=== PATIENT | female | born 1955 | race Caucasian/White ===

== ENCOUNTER 2016-12-08 11:59 | Day surgery (SDC) | payer BC ==
--- NOTE | 2016-12-08 07:54 | History and Physical Report ---
CHIEF COMPLAINT/HISTORY OF CHIEF COMPLAINT: This patient presents with a history of intractable lumbar radiculitis. Due to the failure of all therapies a spinal cord stimulator trial was conducted on 11/09/16 with 75-90% pain control. Due to the failure of all therapies and the success of the trial, she presents today for implantation of a permanent system. PAST MEDICAL HISTORY: Noncontributory. PAST SURGICAL HISTORY: Tubal ligation and gallbladder surgery. MEDICATIONS ON ADMISSION: List to be provided. ALLERGIES: None given. FAMILY/PSYCHOSOCIAL HISTORY: Social history - Smoking and caffeine consumption. Family history - Diabetes and hypertension. SYSTEMS REVIEW: The patient seems appropriate in no acute distress. The remainder of the systems review is noncontributory. PHYSICAL EXAMINATION: Height is 5'1", weight is 140. Vital signs are not available. HEENT: Within normal limits. LUNGS: Clear. HEART: Regular rate and rhythm. ABDOMEN: Nontender. MUSCULOSKELETAL: Examination of the musculoskeletal system shows diffuse tenderness throughout the lumbar spine. Range of motion causing pain throughout the low back and extending into the lower extremities. Ambulation - No assistive device utilized. NEUROLOGIC: Cranial nerves are intact. IMPRESSION: LUMBAR RADICULITIS, ICD10 CODE M54.16 AND M54.17. PLAN: The patient is here for implant of spinal cord stimulator with internal generator. The potential risks, side effects and complications were reviewed and discussed including spinal headache, nerve root injury, and spinal cord trauma. All of the information has been given and provided and reviewed and discussed and the patient agrees. The procedure will be outpatient although an overnight stay will be evaluated. NERIS DREW D.O. Date & Time JOB NUMBER: [id number] MTDD
[~2016-12-08 11:59] MED LIST: ACETAMINOPHEN 1000MG/100 ML PREMIX IV ONE; CEFAZOLIN 2 Gram 50 ML IVPB ONE; FAMOTIDINE 20MG TABLET PO ONE; MECLIZINE 25 MG TABLET PO ONE; METOCLOPRAMIDE 10 MG TABLET PO ONE
[2016-12-08] MEDS ORDERED: PROPOFOL 10 MG/ML VIAL IV ONE (14:00)
[2016-12-08] MEDS ORDERED: FENTANYL PF 100MCG/2ML VIAL IV ONE (14:00)
[2016-12-08] MEDS ORDERED: BUPIVACAINE 0.5% W/EPI MPF 30 ML VIAL IVP ONE (14:00)
[2016-12-08] MEDS ORDERED: KETOROLAC 30 MG/ML VIAL IVP ONE (14:00)
[2016-12-08] MEDS ORDERED: LIDOCAINE 2% MDV (20MG/ML) 20ML VIAL IV ONE (14:00)
[2016-12-08] MEDS ORDERED: FLUMAZENIL 1MG/10ML VIAL IV ONE (14:00)
[2016-12-08] MEDS ORDERED: MIDAZOLAM HCL 2MG/2ML VIAL IV ONE (14:00)
[2016-12-08] MEDS ORDERED: CEFAZOLIN 1G VIAL IM ONE (14:00)
[2016-12-08] MEDS ORDERED: LIDOCAINE 1% W/EPI 1:200,000 MPF 30ML SQ ONE (14:00)
[2016-12-08] MEDS ORDERED: ACETAMINOPHEN 325 MG TAB PO PRN ×2 (15:50)
[2016-12-08] MEDS ORDERED: HYDROMORPHONE HCL 1 MG/ML CPJ IM PRN (15:50)
[2016-12-08] MEDS ORDERED: SENNOSIDES/DOCUSATE SODIUM UD CAPSULE PO PRN ×2 (15:50)
[2016-12-08] MEDS ORDERED: TEMAZEPAM 15 MG CAPSULE PO PRN ×2 (15:50)
[2016-12-08] MEDS ORDERED: METOCLOPRAMIDE 10 MG TABLET PO PRN (15:50)
[2016-12-08] MEDS ORDERED: DIPHENHYDRAMINE HCL 25 MG CAPSULE PO PRN ×2 (15:50)
[2016-12-08] MEDS ORDERED: HYDROMORPHONE HCL 2 MG/ML VIAL IM PRN (15:50)
[2016-12-08] MEDS ORDERED: METOCLOPRAMIDE HCL 10 MG/2 ML VIAL IVP PRN (15:50)
[2016-12-08] MEDS ORDERED: DIPHENHYDRAMINE HCL IV 50 MG/ML VIAL IVP PRN ×2 (15:50)
[2016-12-08] MEDS ORDERED: OXYCODONE/APAP 10MG-325MG TABLET PO PRN ×2 (15:50)
[2016-12-08] MEDS ORDERED: HYDROCODONE/APAP 7.5/325MG TABLET PO PRN (15:50)
[2016-12-08] MEDS ORDERED: RINGERS SOLUTION,LACTATED 1,000 ML IV SCH (15:50)
[2016-12-08] MEDS ORDERED: AL HYDROX/MAG HYDROX 30ML UD PO PRN (15:50)
[2016-12-08] MEDS ORDERED: ALPRAZOLAM 1 MG TAB PO PRN (15:53)
[2016-12-08] MEDS: HYDROCODONE/APAP 7.5/325MG TABLET PO PRN ×2 (18:42→22:21)
[2016-12-08] MEDS ORDERED: GABAPENTIN 300 MG CAPSULE PO SCH (22:00)
[2016-12-08] MEDS: CEFAZOLIN 2 Gram 50 ML IVPB SCH (22:15)
[2016-12-09] MEDS ORDERED: PANTOPRAZOLE SODIUM 40 MG TABLET PO SCH (07:00)
[2016-12-09] MEDS: HYDROCODONE/APAP 7.5/325MG TABLET PO PRN (09:00)
[2016-12-09] MEDS ORDERED: ATORVASTATIN 20 MG TABLET PO SCH (10:00)
[2016-12-09] MEDS ORDERED: PIOGLITAZONE HCL 15 MG TABLET PO SCH (10:00)
[2016-12-09] MEDS ORDERED: LISINOPRIL 10 MG TABLET PO SCH (10:00)
[2016-12-09] MEDS ORDERED: DULOXETINE HCL 30 MG CAPSULE.DR PO SCH (10:00)
[2016-12-09] MEDS: CEFAZOLIN 2 Gram 50 ML IVPB SCH ×2 (10:43→11:15)
--- NOTE | 2016-12-10 16:54 | Operative Note ---
DATE OF SURGERY: 12/08/2016 PREOPERATIVE DIAGNOSIS: Lumbar radiculitis, ICD10 code M54.16 and M54.17. OPERATION: 1. Fluoroscopic-guided epidural access left T12-L1, placement of spinal cord stimulator lead 1, a [employer] 16, 6 electrodes positioned left T6. 2. Complex programming of lead 1 for 20 minutes. 3. Fluoroscopic-guided epidural access left T11-12, placement of spinal cord stimulator lead 2, a [employer] 16, 6 electrodes positioned right T6. 4. Complex programming of lead 2 for 20 minutes. 5. Incision and subcutaneous dissection anchoring leads 1 and 2 to supraspinous fascia using a [employer] locking anchor. 6. Incision and subcutaneous dissection and creation of subcutaneous pouch at left posterior gluteal margin for placement of generator identified as a [employer] programmable rechargeable. 7. Tunneling between pouches placed lead 1 or lead 2 into generator pouch, each lead interfaced with bifurcate extension, each bifurcate extension interfaced to generator. 8. Placement of leads in the pouch, placement of generator pouch, closure of incisions with Vicryl for fascia, running subcuticular Vicryl for skin, Dermabond closure. 9. Complex programming internal generator 2 leads in recovery room for 20 minutes. Surgeon: Jett García, Anesthesia: Local with sedation. Anesthesia Provider: Alexis Velazquez Indication: This patient presents with a history of intractable lumbar radiculitis. Due to failure of all therapies and the success of a stimulator trial previously performed. she presents today for implantation of permanent system. PROCEDURE: Intravenous line, vital sign monitoring, IV sedation. Prepped, draped, sterile technique. Under imaging, on the left, the epidural inner space at 12-1 and 11-12 marked, infiltrated. Two separate curved access needles with loss to resistance. At 12-1, spinal cord stimulator lead 1, a [employer] 16, 6 electrodes positioned left T6. With the epidural access at 11-12, spinal cord stimulator lead 2, a [employer] 16, 6 electrodes positioned right T6. Complex programming of lead 1 over 20 minutes followed by complex programming of lead 2 over 20 minutes ultimately resulting in a pattern of stimulation across the back and the legs. Patient indicating we were in all the appropriate areas. She was then given the option implant the system or continue to program or remove. She opted to implant. At that point, she was re-sedated. The skin above and below the needles infiltrated, incision made, and subcutaneous dissection was consulted at supraspinous fascia. The needles were removed and each lead was anchored to the supraspinous fascia using a [employer] locking anchor. At the left posterior-superior gluteal margin or a site picked by the patient for the generator identified as [employer] programmable rechargeable, the skin was infiltrated, incision made, and subcutaneous dissection was conducted to form a pouch of suitable size and depth for the generator identified as [employer] programmable rechargeable. Antibiotic irrigation and Bovie for hemostasis. A tunneling tool was then used to carry the leads into the generator pouch and then each lead was interfaced with a bifurcate extension. Each bifurcate extension interfaced w the generator. The leads were placed and coiled into their own pouch with generator placed into its pouch and secured to the fascia using nonabsorbable suture. The incisions were then closed with Vicryl for fascia, running subcuticular Vicryl for skin and then Dermabond closure system was used to approximate the edges of the wound. She was transported to the recovery room stable showing no side effects from the procedure or sedation. When fully awake, and alert complex programming in the recovery room was performed reestablishing stimulation and pain control to all the appropriate areas. She was instructed on the use of the system and was provided with information on her messaging. She will be kept overnight for observation and discharged in the morning. DISCHARGE INSTRUCTIONS: 1. The sites will remain clean and dry, although the Dermabond will allow showering. We recommend 12-24 hours. 2. Standard medications resumed including Levaquin, the antibiotic, 500 mg once a day for 14 days. Should she not tolerate the antibiotic, she should contact the clinic for substitution. An antibiotic is required. 3. All other medications will be resumed except blood thinners and nonsteroidal anti-inflammatories. Those will be cleared once she is seen in the office in 3-5 days. All other instructions were provided with numbers to contact if problems given. The scheduling of the appointment in the office will be handled by contacting the patient at home. Jett García DO CC: Dr. King BURROUGHS
== END 2016-12-09 11:45 | disposition home or self-care (01) ==
LOC: SUR 11:59 → MEDSURG 15:53 → SUR 12-09 11:45
PROVIDERS: ATTEND Pain Medicine Interventional Pain Medicine
DX: M54.16 Radiculopathy, lumbar region (principal); M54.17 Radiculopathy, lumbosacral region; E78.00 Pure hypercholesterolemia, unspecified; E11.9 Type 2 diabetes mellitus without complications; Z79.84 Long term (current) use of oral hypoglycemic drugs; I10 Essential (primary) hypertension
CPT/HCPCS: 63685; 63650 ×2; 00300; 95972; 36416; 82948; 72020; J1885; J3010; J0690; J3490; J7120